=== PATIENT | female | born 1955 | race Caucasian/White ===

== ENCOUNTER 2017-03-11 10:28 | Emergency (ER) | payer OTHER ==
--- NOTE | 2017-03-11 10:58 | Emergency Department Record ---
History of Present Illness - General Chief Complaint: Cough Stated Complaint: COUGHING UP BLOOD Time Seen by Provider: 03/11/17 10:49 Source: Patient Mode of Arrival: Ambulatory Limitations: No limitations - History of Present Illness Initial Comments: The patient is here due to coughing more sputum up for the last 2 days and now there is some blood in it. She has a hx of chronic bronchitis due to her asthma and does see a director business systems and now seems to be coughing stuff up worse than normal. She denies any fever, chills, CP, Pleuritic CP, SOB, CLARIBEL, back pain, or leg swelling. MD Complaint: Cough Onset/Timin -: Days(s) Severity: Mild, Moderate Severity scale (1-10): 4 Consistency: Constant - Related Data Home Medications Medication Instructions Recorded Confirmed Last Taken Albuterol Sulfate [Ventolin Hfa] 1 - 2 puff IH .EVERY 4-6 HOURS PRN 03/11/17 1 Day Ago ~03/10/17 Fluticasone/Salmeterol 250/50 1 each IH Q12H 03/11/17 03/11/17 1 Day Ago [Advair 250/50] ~03/10/17 Glucosam/Vasquez-Msm1/C/Bong/Bosw 1 tab PO DAILY 03/11/17 03/11/17 Unknown [Osteo Bi-Flex] Ibuprofen 400 mg PO BID 03/11/17 03/11/17 1 Day Ago ~03/10/17 Magnesium Oxide [Magnesium] 400 mg PO DAILY 03/11/17 03/11/17 1 Day Ago ~03/10/17 Multivit with Calcium,Iron,Min 1 each PO DAILY 03/11/17 03/11/17 1 Day Ago [Multiple Vitamins For Women] ~03/10/17 Zolpidem Tartrate [Ambien] 10 mg PO QHS 03/11/17 03/11/17 1 Day Ago ~03/10/17 Previous Rx's Medication Instructions Recorded Azithromycin [Zithromax] 250 mg PO ASDIR #4 tab 03/11/17 Azithromycin [Zithromax] 250 mg PO ASDIR #6 tab 03/11/17 Azithromycin [Zithromax] 250 mg PO DAILY #4 tab 03/11/17 Prednisone [Prednisone 20Mg] 40 mg PO DAILY #8 tab 03/11/17 Allergies Allergy/AdvReac Type Severity Reaction Status Date / Time latex [LATEX] Allergy Unknown HIVES Verified 03/11/17 10:42 Wqmefog-Fdh-Vam Reductase Allergy Unknown MUSCLE PAIN Verified 03/11/17 10:42 Inhibitor [EBAFESC-QAF-DOG REDUCTASE INHIBITOR] Travel Screening - Travel/Exposure Within Last 30 Days Have you traveled within the last 30 days?: Yes Location Detail:: [place] - Travel/Exposure Within Last Year Have you traveled outside the [place] in the last year?: No - Additonal Travel Details Have you been exposed to anyone with a communicable illness?: No - Travel Symptoms Symptom Screening: None Review of Systems Constitutional: Denies: Chills, Fever Eyes: Denies: Eye discharge ENT: Reports: Congestion Respiratory: Reports: Cough. Denies: Dyspnea Past Medical History - SOCIAL HISTORY Smoking Status: Former smoker Alcohol Use: None Drug Use: None - RESPIRATORY Hx Asthma: Yes (diagnosed at age 56) Hx Bronchitis: Yes - CARDIOVASCULAR Hx Hypertension: Yes (controlled) - NEURO Hx Headaches: Yes - GI Hx GI Disorders: No - Hx Genitourinary Disorders: No - ENDOCRINE Hx Diabetes: No Hx Thyroid Disease: No - MUSCULOSKELETAL Hx Arthritis: Yes - PSYCH Hx Anxiety: Yes - HEMATOLOGY/ONCOLOGY Hx Hematology/Oncology Disorders: No Family Medical History Any Significant Family History?: Yes Physical Exam - General General Appearance: Alert, Oriented x3, Cooperative, No acute distress - Head Head exam: Atraumatic, Normocephalic, Normal inspection - Eye Eye exam: Normal appearance, PERRL - ENT Throat exam: Normal inspection. negative: Tonsillar erythema, Tonsillar exudate - Neck Neck exam: Normal inspection, Full ROM. negative: Tenderness - Respiratory Respiratory exam: Normal lung sounds bilaterally. negative: Respiratory distress, Rhonchi, Stridor, Wheezes - Cardiovascular Cardiovascular Exam: Regular rate, Normal rhythm, Normal heart sounds - GI/Abdominal GI/Abdominal exam: Soft, Normal bowel sounds. negative: Tenderness - Extremities Extremities exam: Normal inspection, Full ROM, Normal capillary refill. negative: Calf tenderness, Pedal edema, Tenderness - Neurological Neurological exam: Alert, Normal gait. negative: Abnormal gait, Motor sensory deficit Course Vital Signs 03/11/17 10:30 Temperature 98.0 F Pulse Rate 85 Respiratory 18 Rate Blood Pressure 138/89 Pulse Ox 94 L - Reevaluation(s) Reevaluation #1: The patient is doing very well at this time. She denies any CP, SOB, or pleuritic pain. I did discuss the lab work and normal CXR with her and also the need for F/U if not better in 2-3 days. 03/11/17 11:50 Reevaluation #2: The patient is doing very well and denies any CP or SOB. I did discuss the neg CT report and the positive infiltrate on CT. She is to F/U with her PCP next week for recheck. 03/11/17 14:20 Medical Decision Making - Data Complexity MDM Data: Labs Ordered and/or Reviewed, X-Ray Ordered and/or Reviewed - Lab Data Result diagrams: 03/11/17 11:14 03/11/17 11:14 - Radiology Data Radiology results: Report reviewed (CXR: Neg per Rad. Chest CT: Neg PE, medial RML infiltrate.) Disposition Disposition: Discharge Clinical Impression: Upper respiratory infection, acute Disposition: Home, Self-Care Condition: (2) Stable Instructions: Pneumonia (ED) Additional Instructions: Please continue your regular medicines. Please take the Zpak and Prednisone as directed and see your PCP next week for recheck. Return to the ER for any worsening symptoms. Prescriptions: Azithromycin [Zithromax] 250 mg PO ASDIR #6 tab Azithromycin [Zithromax] 250 mg PO ASDIR #4 tab Azithromycin [Zithromax] 250 mg PO DAILY #4 tab Prednisone [Prednisone 20Mg] 40 mg PO DAILY #8 tab Forms: Patient Portal Access Time of Disposition: 11:55 Quality - Quality Measures Quality Measures: N/A - Blood Pressure Screening View Details: Yes Does Patient Have Any of the Following: No Blood Pressure Classification: Pre-Hypertensive BP Reading Systolic Measurement: 138 Diastolic Measurement: 89 Screening for High Blood Pressure: < Pre-Hypertensive BP, F/U Documented > [ G8950] Pre-Hypertensive Follow-up Interventions: Referral to alternative/primary care provider.
[2017-03-11 11:28] LABS: BASO % 0.2 % (0-6); EOS % 0.5 % (0-6); GRAN % 77.5 % (47-80); HEMATOCRIT 40.6 % (35.0-47.0); HEMOGLOBIN 13.8 gm/dl (11.6-16.0); MEAN CELL VOLUME 87.1 fl (81-97); MEAN CORPUSCULAR HEMOGLOBIN 29.6 pg (27-33); MEAN PLATELET VOLUME 9.9 fl (7.4-10.4); MONO % 6.8 % (0-9); PLATELET COUNT 240 K/uL (130-400); RED BLOOD COUNT 4.66 M/uL (3.80-5.40); RED CELL DISTRIBUTION WIDTH 13.3 % (11.5-14.5)
[2017-03-11 11:41] LABS: BLOOD UREA NITROGEN 14 mg/dL (6-20); CREATININE 0.5 mg/dL (0.5-0.9); EST GLOMERULAR FILTRATION RATE > 60 mL/min
[2017-03-11 11:43] LABS: GLUCOSE,RANDOM 103 mg/dL (74-109)
[2017-03-11] MEDS ORDERED: PREDNISONE 20 MG TAB PO ONE (11:55)
[2017-03-11] MEDS ORDERED: AZITHROMYCIN 500 MG TABLET PO ONE (11:55)
[2017-03-11] MEDS ORDERED: 0.9 % SODIUM CHLORIDE 1,000 ML BAG IV ONE (12:27)
--- NOTE | 2017-03-12 07:24 | RADIOLOGY REPORT ---
EXAM: CHEST HISTORY: CHRONIC PRODUCTIVE COUGH, COUGHING UP BLOOD. TECHNIQUE: Two views of the chest were obtained. Comparison: 04/14/12. FINDINGS: The heart is not enlarged and there is no mediastinal mass. No acute infiltrate or vascular congestion. A right shoulder prosthesis is present. IMPRESSION: 1. NO ACUTE CARDIAC OR PULMONARY ABNORMALITY. 2. RIGHT SHOULDER PROSTHESIS IN PLACE. JOB NUMBER: [id number] [facility]
--- NOTE | 2017-03-12 07:30 | CT ANGIOGRAM REPORT ---
EXAM: CT ANGIOGRAPHY OF THE THORAX HISTORY: FLU LIKE SYMPTOMS, COUGHING UP BLOOD AND SPUTUM. TECHNIQUE: CT angiography of the thorax was performed following intravenous contrast administration. 100 ml of Omnipaque 350 contrast was used for this examination. Coronal and sagittal post processed MIP images are performed on an independent workstation as part of this examination. Comparison: CT angiography of the thorax 02/28/12. FINDINGS: No pulmonary emboli are seen. No aortic aneurysm or aortic dissection identified. No enlarged mediastinal or hilar mass or adenopathy. A few nonspecific lymph nodes are present, similar to the patient's prior examination. There is an area of new infiltrate at the medial right lung base. This may represent pneumonia. No other area of lung consolidation identified. There is no pleural or pericardial effusion. There is a 4 mm calcified nodule in the upper left lung likely an old granuloma. No other lung mass or nodule identified. Limited upper abdominal images demonstrate bilateral adrenal enlargement chronic and unchanged from the patient's previous study. The upper abdomen is otherwise unremarkable. IMPRESSION: 1. ACUTE APPEARING INFILTRATE AT THE MEDIAL RIGHT LUNG BASE MAY REPRESENT PNEUMONIA. 2. NO PULMONARY EMBOLI. NO AORTIC ANEURYSM OR AORTIC DISSECTION. 3. CALCIFIED LEFT LUNG NODULE LIKELY DUE TO OLD GRANULOMATOUS DISEASE. 4. CHRONIC BILATERAL ADRENAL ENLARGEMENT. JOB NUMBER: [id number] [facility]
== END 2017-03-11 14:29 | disposition home or self-care (01) ==
LOC: ER 10:28
DX: J06.9 Acute upper respiratory infection, unspecified (principal); R04.2 Hemoptysis; I10 Essential (primary) hypertension; Z87.891 Personal history of nicotine dependence
CPT/HCPCS: 99284 ×2; 85025; 80048; 85379; 71020; 71275; Q9967; J7512; J7030

== ENCOUNTER 2017-04-15 14:02 | Emergency (ER) | payer OTHER ==
--- NOTE | 2017-04-15 14:44 | Emergency Department Record ---
History of Present Illness - General Chief complaint: ENT Stated complaint: SORE THROAT Time Seen by Provider: 04/15/17 14:36 Source: Patient Mode of Arrival: Ambulatory - History of Present Illness Initial comments: sore throat and it has been going on for two weeks and diagnosised with strep throat about one week. Onset/Timin -: Week(s) Location: Throat Severity: Mild Severity scale (1-10): 3 Quality: Aching Consistency: Intermittent Improves with: None Worsens with: None Associated Symptoms: Sore throat - Related Data Home Medications Medication Instructions Recorded Confirmed Last Taken Fluticasone/Salmeterol [Advair 1 inh INH BID 04/15/17 04/15/17 Unknown 250-50 Diskus] Allergies Allergy/AdvReac Type Severity Reaction Status Date / Time latex [LATEX] Allergy Unknown HIVES Verified 04/15/17 14:20 Noebvch-Fzt-Obi Reductase Allergy Unknown MUSCLE PAIN Verified 04/15/17 14:20 Inhibitor [YICLWWO-SGE-VRT REDUCTASE INHIBITOR] Travel Screening - Travel/Exposure Within Last 30 Days Have you traveled within the last 30 days?: No Review of Systems Reviewed: No additional complaints except as noted below Constitutional: Reports: As per HPI. Denies: Chills, Fever, Malaise, Night sweats, Weakness, Weight change Eyes: Reports: As per HPI. Denies: Eye discharge, Eye pain, Photophobia, Vision change ENT: Reports: As per HPI. Denies: Congestion, Dental pain, Ear pain, Epistaxis , Hearing loss, Throat pain Respiratory: Reports: As per HPI. Denies: Cough, Dyspnea, Hemoptysis, Stridor, Wheezes Cardiovascular: Reports: As per HPI. Denies: Arrhythmia, Chest pain, Dyspnea on exertion, Edema, Murmurs, Orthopnea, Palpitations, Paroxysmal nocturnal dyspnea, Rheumatic Fever, Syncope Endocrine: Reports: As per HPI. Denies: Fatigue, Heat or cold intolerance, Polydipsia, Polyuria Gastrointestinal: Reports: As per HPI. Denies: Abdominal pain, Constipation, Diarrhea, Hematemesis, Hematochezia, Melena, Nausea, Vomiting Genitourinary: Reports: As per HPI. Denies: Abnormal menses, Discharge, Dyspareunia, Dysuria, Frequency, Hematuria, Incontinence, Retention, Urgency Musculoskeletal: Reports: As per HPI. Denies: Arthralgia, Back pain, Gout, Joint swelling, Myalgia, Neck pain Skin: Reports: As per HPI. Denies: Bruising, Change in color, Change in hair/ nails, Lesions, Pruritus, Rash Neurological: Reports: As per HPI. Denies: Abnormal gait, Confusion, Headache, Numbness, Paresthesias, Seizure, Tingling, Tremors, Vertigo, Weakness Psychiatric: Reports: As per HPI. Denies: Anxiety, Auditory hallucinations, Depression, Homicidal thoughts, Suicidal thoughts, Visual hallucinations Hematological/Lymphatic: Reports: As per HPI. Denies: Anemia, Blood Clots, Easy bleeding, Easy bruising, Swollen glands Past Medical History - SOCIAL HISTORY Smoking Status: Former smoker Alcohol Use: None Drug Use: None - RESPIRATORY Hx Respiratory Disorders: Yes Hx Asthma: Yes (diagnosed at age 56) Hx Bronchitis: Yes - CARDIOVASCULAR Hx Cardio Disorders: No - NEURO Hx Neuro Disorders: Yes Hx Headaches: Yes - GI Hx GI Disorders: No - Hx Genitourinary Disorders: No - ENDOCRINE Hx Endocrine Disorders: No Hx Diabetes: No Hx Thyroid Disease: No - MUSCULOSKELETAL Hx Arthritis: Yes - PSYCH Hx Psych Problems: Yes Hx Anxiety: Yes - HEMATOLOGY/ONCOLOGY Hx Hematology/Oncology Disorders: No Family Medical History Any Significant Family History?: No Physical Exam - General General Appearance: Alert, Oriented x3, Cooperative, No acute distress - Head Head exam: Normal inspection - Eye Eye exam: Normal appearance, PERRL Pupils: Normal accommodation - ENT ENT exam: Normal exam, Mucous membranes moist, Normal external ear exam, Normal orophraynx, TM's normal bilaterally Ear exam: Normal external inspection. negative: External canal tenderness Nasal Exam: Normal inspection. negative: Discharge, Sinus tenderness Mouth exam: Normal external inspection, Tongue normal Teeth exam: Normal inspection. negative: Dental caries Throat exam: Tonsillar erythema. negative: Tonsillar exudate - Neck Neck exam: Normal inspection, Full ROM. negative: Tenderness - Respiratory Respiratory exam: Normal lung sounds bilaterally. negative: Respiratory distress - Cardiovascular Cardiovascular Exam: Regular rate, Normal rhythm, Normal heart sounds - GI/Abdominal GI/Abdominal exam: Soft, Normal bowel sounds. negative: Tenderness - Rectal Rectal exam: Deferred - exam: Deferred - Extremities Extremities exam: Normal inspection, Full ROM, Normal capillary refill. negative: Tenderness - Back Back exam: Reports: Normal inspection, Full ROM. Denies: Muscle spasm, Rash noted, Tenderness - Neurological Neurological exam: Alert, Normal gait, Oriented X3, Reflexes normal - Psychiatric Psychiatric exam: Normal affect, Normal mood - Skin Skin exam: Dry, Intact, Normal color, Warm Course Vital Signs 04/15/17 14:15 Temperature 98.6 F Pulse Rate 65 Respiratory 18 Rate Blood Pressure 147/95 Pulse Ox 97 Medical Decision Making - Data Complexity MDM Data: Labs Ordered and/or Reviewed (strep neg ,flu neg) Disposition Clinical Impression: Pharyngitis Qualifiers: Pharyngitis/tonsillitis etiology: unspecified etiology Qualified Code(s): J02.9 - Acute pharyngitis, unspecified Disposition: Home, Self-Care Condition: (1) Good Instructions: Pharyngitis (ED) Additional Instructions: follow up with family in 3 days fluids tylenol or motrin for pain follow up with family in 3 days Forms: Patient Portal Access Time of Disposition: 15:13 Quality - Quality Measures Quality Measures: N/A - Blood Pressure Screening Does Patient Have Any of the Following: No Blood Pressure Classification: Hypertensive Reading Systolic Measurement: 147 Diastolic Measurement: 95 Screening for High Blood Pressure: < First Hypertensive BP, F/U Documented > [ G8950] First Hypertensive Follow-up Interventions: Referral to alternative/primary care provider.
[2017-04-15 15:00] LABS: STREP A SCREEN NEGATIVE (NEGATIVE)
[2017-04-15 15:10] LABS: INFLUENZA A NEGATIVE (NEGATIVE); INFLUENZA B NEGATIVE (NEGATIVE)
== END 2017-04-15 15:28 | disposition home or self-care (01) ==
LOC: ER 14:02
DX: J02.9 Acute pharyngitis, unspecified (principal); Z87.891 Personal history of nicotine dependence
CPT/HCPCS: 87400; 87880; 99282